=== PATIENT | female | born 2000 | race Caucasian/White ===

== ENCOUNTER 2021-07-31 12:35 | Observation (INO) ==
[2021-07-31 12:59] LABS: Basophils # (auto) 0.03 K/uL (0-0.2); Basophils % (auto) 0.3 %; Eosinophils # (auto) 0.08 K/uL (0-0.5); Eosinophils % (auto) 0.8 %; Hematocrit (blood only) 36.5 % (37-47); Hemoglobin 12.5 g/dL (12.0-16.0); Immature Granulocytes # (auto) 0.02 K/uL (0.00-0.02); Immature Granulocytes % (auto) 0.2 %; Lymphocytes # (auto) 1.34 K/uL (1.2-3.4); Lymphocytes % (auto) 13.6 %; Mean Corpuscular Hemoglobin 31.7 pg (25-34); Mean Corpuscular Hgb Conc 34.2 g/dL (32-36); Mean Corpuscular Volume 92.6 fL (80-100); Mean Platelet Volume 9.6 fL (7.4-10.4); Monocytes # (auto) 0.61 K/uL (0.11-0.59); Monocytes % (auto) 6.2 %; Neutrophils # (auto) 7.75 K/uL (1.4-6.5); Neutrophils % (auto) 78.9 %; Platelet Count 307 K/uL (130-400); RDW Coefficient of Variation 11.8 % (11.5-14.5); RDW Standard Deviation 40.5 fL (36.4-46.3); Red Blood Count 3.94 M/uL (4.2-5.4); White Blood Count 9.83 K/uL (4.8-10.8)
[2021-07-31 13:24] LABS: Alanine Aminotransferase 10 U/L (7-52); Albumin Globulin Ratio 1.9 (0.9-2); Albumin Level 4.5 gm/dl (3.4-5.0); Alkaline Phosphatase 37 U/L (34-104); Anion Gap 7 (3-11); Aspartate Aminotransferase 12 U/L (13-39); BUN Creatinine Ratio 13.3 (10-20); Bilirubin,Total 0.3 mg/dl (0.2-1.0); Blood Urea Nitrogen 8 mg/dl (6-23); Calcium 9.1 mg/dl (8.5-10.1); Carbon Dioxide 26 mmol/L (21-32); Chloride 105 mmol/L (98-107); Creatinine Clr Calc Pharmacy 118.3 ml/min; Est GFR (African American) > 150.0 ml/min; Est GFR (Non-African American) 131.2 ml/min; Globulin 2.4 gm/dl (2.5-4.0); Glucose 94 mg/dl (70-99(Fasting)); Lipase 7 U/L (11-82); Potassium 3.7 mmol/L (3.5-5.1); Sodium 138 mmol/L (136-145); Total Protein 6.9 gm/dl (6.0-8.3)
[2021-07-31] MEDS ORDERED: KETOROLAC TROMETHAMINE 15 MG/ML VIAL IV STA (13:58)
[2021-07-31] MEDS ORDERED: SODIUM CHLORIDE 0.9% 1000ML 1,000 ML IV SCH (13:59)
--- NOTE | 2021-07-31 14:02 | Emergency Department Note ---
History of Present Illness General Chief complaint: Abdominal Pain Stated complaint: FLANK PAIN, REF BY MED EX Time Seen by Provider: 07/31/21 13:32 History of Present Illness Maximum Pain Intensity: 6 Patient is a healthy 20-year-old female who presents the emergency department for evaluation of right back and abdominal pain x3 days. She was referred by [facility] for evaluation. Patient states that on Thursday evening, 3 days ago, after eating [place] leftovers she developed some right-sided mid back discomfort. The pain persisted the following day, and she also began to notice some discomfort in the right side of her abdomen. She notes the pain is worse after eating. It is worse at night. She states the pain has continued, and gotten worse. She has tried taking Aleve which initially was helping, but now is not. She tried to take NyQuil to see if it would help her to sleep but the pain kept her from sleeping the last 2 nights. She states that its worst she would have rated her pain a 9/10 last evening, she currently rates it a 5/10. She reports anorexia and has not been eating secondary to concern for pain, no nausea or vomiting. Normal bowel movements. No urinary symptoms. She denies any alcohol use, drinks caffeinated beverages sparingly, and uses Aleve infrequently for discomfort. Remote history of acid reflux as a child, but no ongoing GI issues. She was seen at [facility], they were concerned for possible gallbladder pathology and they sent her to the emergency department Home Medications Medication Instructions Recorded Confirmed Type norgestimate 0.18 mg/0.215 mg/0.25 1 tab PO DAILY 07/31/21 07/31/21 History mg-ethinyl estradiol 25 mcg tablet ([id number]) Allergies Allergy/AdvReac Type Severity Reaction Status Date / Time No Known Allergies Allergy Verified 07/31/21 17:11 Past Med/Surg History Medical History No significant past medical history Surgical History H/O wisdom tooth extraction History of adenoidectomy Social History Smoking Status: Never smoker Feels Safe at Home: Yes Review of Systems A total of 10 systems reviewed and were otherwise negative Physical Exam Vital Signs Vital Signs - 24 hr 07/31/21 12:39 Temperature 36.3 C L Temperature Source Temporal Artery Scan Pulse Rate 85 Respiratory Rate 18 Respiratory Effort / Characteristics Non-Labored Respiratory Depth Normal Blood Pressure 129/89 Blood Pressure Mean 102 Pulse Oximetry 98 Oxygen Delivery Method Room Air Sepsis Recent Fever Within 48 Hours No Sepsis New/Unexplained Change in Mental Status No Sepsis Action Taken by Nursing No Action Required CONSTITUTIONAL: Petite, well-appearing 20-year-old female who is awake and alert and in no acute distress. EYES: Pupils equal, round, reactive to light and accommodation. EOMs intact without nystagmus. Sclera are anicteric. ENT: Tympanic membranes intact, with normal landmarks. External canals are clear. Oral and nasopharynx are clear. Mucous membranes are moist, no lesions, tongue and gums appear normal. CARDIOVASCULAR: Regular rate and rhythm, with normal S1 and S2, no murmur or gallop or rub is heard. Peripheral pulses easy to palpable. RESPIRATORY: Breath sounds equal and clear to auscultation without wheezes, rales, or rhonchi heard. Full and equal chest expansion without accessory mu scle use or retractions. GI: Bowel sounds are present. Abdomen is soft, nontender to percussion th roughout, mildly tender to palpation in the right mid abdomen. No guarding or rebound. MUSCULOSKELETAL: Full range of motion of extremities x 4 with good strength. No cyanosis, edema, joint tenderness or swelling. No deformity. Examination of the patient's back notes no rashes, erythema or swelling. Slight tenderness to palpation in the right thoracic paraspinous muscle distribution. Full range of motion. INTEGUMENTARY: No lesions or rash, normal skin turgor. LYMPH: No lymphadenopathy. Course Course The patient was seen and assessed as above. Old records are reviewed. She presents the emergency department for evaluation of right mid back and right- sided abdominal pain x3 days. She was seen at an outside urgent care center and sent to the emergency department for evaluation. CBC with differential, CMP, lipase, serum hCG and urinalysis were collected. Gallbladder ultrasound was obtained. Patient was hydrated with normal saline, and medicated with Toradol 15 mg IV. Laboratory studies note a normal white count at 9800. No bandemia noted. No anemia. Electrolytes and renal functions are normal. Transaminases are not elevated. Lipase is within normal limits. Serum hCG is negative. Urine micr oscopy is clear without signs of infection. Ultrasound of the gallbladder notes cholelithiasis with gallbladder wall thickening and pericholecystic fluid, concerning for acute cholecystitis. No ductal dilatation. Laboratory and ultrasound findings were reviewed with the patient. Consultation was placed with general surgery, Dr. Haji/Coby Ramirez PA-C came to evaluate the patient in the emergency department. Please refer to their surgical consult for further information. Initially it was felt that the patient could be discharged home, with plans for elective cholecystectomy as an outpatient. She preferred this given school constraints, and that she is away from home. Upon further discussion with her family however, the patient has changed her mind, and would like to pursue cholecystectomy as soon as possible. I did contact Dr. Haji with regards to the change in the patient's decision, he will evaluate the patient. A Covid swab was obtained for admitting/surgical purposes. Administered Medications Discontinued Medications Sodium Chloride (Nss 1000ml) 1,000 mls @ 999 mls/hr IV .Q1H1M FARIBA Stop: 07/31/21 14:59 Last Infusion: 07/31/21 15:17 Dose: 0 mls/hr Documented by: [id number] Admin: 07/31/21 14:28 Dose: 999 mls/hr Documented by: [id number] Ketorolac Tromethamine (Ketorolac Tromethamine 15 Mg/Ml Vial) 15 mg IV NOW STA Stop: 07/31/21 13:59 Last Admin: 07/31/21 14:27 Dose: 15 mg Documented by: [id number] Medical Decision Making Differential Diagnosis Differential diagnoses entertained included GERD, gastritis, esophagitis, acute pancreatitis, cholelithiasis, acute cholecystitis, ascending cholangitis, pyelonephritis, UTI, shingles, hernia, musculoskeletal pain, among others. Medical Records Attestation: I reviewed the patient's medical records. Home Medications Current Medication List: was personally reviewed by me Laboratory Data Attestation: I reviewed the patient's lab results. Result diagrams: 07/31/21 12:49 07/31/21 12:49 Lab Results 07/31/21 07/31/21 07/31/21 Range/Units 12:49 12:49 12:49 WBC 9.83 (4.8-10.8) K/uL RBC 3.94 L (4.2-5.4) M/uL Hgb 12.5 (12.0-16.0) g/dL Hct 36.5 L (37-47) % MCV 92.6 (80-100) fL MCH 31.7 (25-34) pg MCHC 34.2 (32-36) g/dL RDW Std Deviation 40.5 (36.4-46.3) fL RDW Coeff of [place] 11.8 (11.5-14.5) % Plt Count 307 (130-400) K/uL MPV 9.6 (7.4-10.4) fL Immature Gran % (Auto) 0.2 % Neut % (Auto) 78.9 % Lymph % (Auto) 13.6 % [place] % (Auto) 6.2 % Eos % (Auto) 0.8 % Baso % (Auto) 0.3 % Neut # (Auto) 7.75 H (1.4-6.5) K/uL Lymph # (Auto) 1.34 (1.2-3.4) K/uL [place] # (Auto) 0.61 H (0.11-0.59) K/uL Eos # (Auto) 0.08 (0-0.5) K/uL Baso # (Auto) 0.03 (0-0.2) K/uL Immature Gran # (Auto) 0.02 (0.00-0.02) K/uL Sodium 138 (136-145) mmol/L Potassium 3.7 (3.5-5.1) mmol/L Chloride 105 (98-107) mmol/L Carbon Dioxide 26 (21-32) mmol/L Anion Gap 7 (3-11) BUN 8 (6-23) mg/dl Creatinine 0.60 (0.6-1.2) mg/dl Est Cr Clr Drug Dosing 118.3 ml/min Est GFR ( Amer) > 150.0 ml/min Est GFR (Non-Af Amer) 131.2 ml/min BUN/Creatinine Ratio 13.3 (10-20) Glucose 94 (70-99(Fasting)) mg/dl Calcium 9.1 (8.5-10.1) mg/dl Total Bilirubin 0.3 (0.2-1.0) mg/dl AST 12 L (13-39) U/L ALT 10 (7-52) U/L Alkaline Phosphatase 37 (34-104) U/L Total Protein 6.9 (6.0-8.3) gm/dl Albumin 4.5 (3.4-5.0) gm/dl Globulin 2.4 L (2.5-4.0) gm/dl Albumin/Globulin Ratio 1.9 (0.9-2) Lipase 7 L (11-82) U/L HCG, Qual Negative (Negative) Urine Color Urine Appearance (Clear) Urine pH (4.5-7.5) Ur Specific [place] (1.000-1.030) Urine Protein (Negative) Urine Glucose (UA) (Negative) Urine Ketones (Negative) Urine Blood (Negative) Urine Nitrite (Negative) Urine Bilirubin (Negative) Urine Urobilinogen (Negative) Ur Leukocyte Esterase (Negative) 07/31/21 Range/Units 14:20 WBC (4.8-10.8) K/uL RBC (4.2-5.4) M/uL Hgb (12.0-16.0) g/dL Hct (37-47) % MCV (80-100) fL MCH (25-34) pg MCHC (32-36) g/dL RDW Std Deviation (36.4-46.3) fL RDW Coeff of [place] (11.5-14.5) % Plt Count (130-400) K/uL MPV (7.4-10.4) fL Immature Gran % (Auto) % Neut % (Auto) % Lymph % (Auto) % [place] % (Auto) % Eos % (Auto) % Baso % (Auto) % Neut # (Auto) (1.4-6.5) K/uL Lymph # (Auto) (1.2-3.4) K/uL [place] # (Auto) (0.11-0.59) K/uL Eos # (Auto) (0-0.5) K/uL Baso # (Auto) (0-0.2) K/uL Immature Gran # (Auto) (0.00-0.02) K/uL Sodium (136-145) mmol/L Potassium (3.5-5.1) mmol/L Chloride (98-107) mmol/L Carbon Dioxide (21-32) mmol/L Anion Gap (3-11) BUN (6-23) mg/dl Creatinine (0.6-1.2) mg/dl Est Cr Clr Drug Dosing ml/min Est GFR ( Amer) ml/min Est GFR (Non-Af Amer) ml/min BUN/Creatinine Ratio (10-20) Glucose (70-99(Fasting)) mg/dl Calcium (8.5-10.1) mg/dl Total Bilirubin (0.2-1.0) mg/dl AST (13-39) U/L ALT (7-52) U/L Alkaline Phosphatase (34-104) U/L Total Protein (6.0-8.3) gm/dl Albumin (3.4-5.0) gm/dl Globulin (2.5-4.0) gm/dl Albumin/Globulin Ratio (0.9-2) Lipase (11-82) U/L HCG, Qual (Negative) Urine Color Yellow Urine Appearance Clear (Clear) Urine pH 7.0 (4.5-7.5) Ur Specific [place] 1.019 (1.000-1.030) Urine Protein Negative (Negative) Urine Glucose (UA) Negative (Negative) Urine Ketones 1+ H (Negative) Urine Blood Negative (Negative) Urine Nitrite Negative (Negative) Urine Bilirubin Negative (Negative) Urine Urobilinogen Negative (Negative) Ur Leukocyte Esterase Negative (Negative) Imaging Data Attestation: I personally reviewed and interpreted this imaging study as follows: Radiologist's Impression: Gallbladder Ultrasound 07/31/21 13:58 US gallbladder HISTORY: 20 years-old Female RUQ, RIGHT BACK PAIN X 3 DAYS acute right upper quadrant abdominal pain COMPARISON: None TECHNIQUE: Multiple real-time sonographic images of the abdominal right upper quadrant were obtained assessing grayscale appearance and color flow FINDINGS: The visualized pancreas is unremarkable. The liver is within normal limits measuring up to 16.3 cm in length. Cholelithiasis with trace gallbladder sludge. Trace pericholecystic fluid. The gallbladder wall is mildly thickened measuring up to 4 mm. Sonographic Griffiths sign reported as negative. Normal common bile duct measures 3 mm. Imaged right kidney is unremarkable without hydronephrosis. IMPRESSION: 1. Cholelithiasis with gallbladder wall thickening and pericholecystic fluid is suspicious for acute cholecystitis in the appropriate clinical setting. The sonographic Griffiths's sign however was reported as negative. 2. No biliary ductal dilation. ACT 112: Negative or not required by law. The above report was generated using voice recognition software. It may contain grammatical, syntax or spelling errors. Electronically signed by: Judah Arteaga M.D. 07/31/2021 3:32 PM MDM Narrative See ED Course. Impression & Plan Acute right flank pain, Symptomatic cholelithiasis Discharge Plan Visit Data Chief Complaint: Abdominal Pain Stated Complaint: FLANK PAIN, REF BY MED EX ED Provider: Irwin Guerrero ED Midlevel Provider: Gilda Coronado Discharge Problem: Acute right flank pain, Symptomatic cholelithiasis Patient Disposition: Being Evaluated by Surgeon Forms Stand Alone Forms: [facility], [facility] Emergency Department, Important Visit Information Prescriptions Prescriptions: No Action norgestimate-ethinyl estradiol [[id number]] 0.18/0.215/0.25 mg-25 mcg tablet 1 tab PO DAILY RF: 0 Referrals Referrals: Emmanuel Haji MD, FACS [Physician] - PCP,NO [Primary Care Provider] -
[2021-07-31 14:20] LABS: Pregnancy Test, Serum Negative (Negative)
[2021-07-31 15:04] LABS: Appearance Urine Clear (Clear); Bilirubin Urine Negative (Negative); Blood Urine Negative (Negative); Color Urine Yellow; Glucose Urine UA Negative (Negative); Ketones Urine 1+ (Negative); Leukocyte Esterase Urine Negative (Negative); Nitrite Urine Negative (Negative); Protein Urine Negative (Negative); Specific Gravity Urine 1.019 (1.000-1.030); Urobilinogen Urine Negative (Negative)
--- NOTE | 2021-07-31 15:33 | Ultrasound Report ---
US gallbladder HISTORY: 20 years-old Female RUQ, RIGHT BACK PAIN X 3 DAYS acute right upper quadrant abdominal pain COMPARISON: None TECHNIQUE: Multiple real-time sonographic images of the abdominal right upper quadrant were obtained assessing grayscale appearance and color flow FINDINGS: The visualized pancreas is unremarkable. The liver is within normal limits measuring up to 16.3 cm in length. Cholelithiasis with trace gallbladder sludge. Trace pericholecystic fluid. The gallbladder w all is mildly thickened measuring up to 4 mm. Sonographic Griffiths sign reported as negative. Normal co mmon bile duct measures 3 mm. Imaged right kidney is unremarkable without hydronephrosis. IMPRESSION: 1. Cholelithiasis with gallbladder wall thickening and pericholecystic fluid is suspicious for acute cholecystitis in the appropriate clinical setting. The sonographic Griffiths's sign however was reported as negative. 2. No biliary ductal dilation. ACT 112: Negative or not required by law. The above report was generated using voice recognition software. It may contain grammatical, syntax o r spelling errors. Electronically signed by: Judah Arteaga M.D. 07/31/2021 3:32 PM
--- NOTE | 2021-07-31 16:54 | Surgery Consultation ---
Date of Consultation July 31, 2021 Assessment & Plan (1) Symptomatic cholelithiasis: This is a 20y F with no significant PMH who presents to the [facility] ED on 07/31/21 with complaints of back and abdominal pain over the last 3 days associated with nausea/vomiting. In the ER she underwent a RUQ US which showed cholelithiasis with gallbladder wall thickening and pericholecystic fluid, cannot rule out cholecystitis. WBC 9.5 and LFTs unremarkable. Her VSS and patient's afebrile. On examination abdomen is soft with mild discomfort to palpation elicited in the RUQ. She currently feels improvement in her symptoms. Patient expressing wishes to have this taken care of over spring if possible. Options discussed with patient regarding surgical intervention while here vs going home & continuing to monitor and follow up with a surgeon back [place] in [place] for consideration of cholecystectomy. Although there are inflammatory changes seen on RUQ there is no evidence of active infection. Believe it is reasonable for patient to be discharged with plan for follow up closer to home in the next 2 weeks. She was given return precautions should she develop ongoing nausea/vomiting, fevers/chills, and worsening abdominal pain to report back to the ER. Recommend a liquid diet tonight and may resume a low fat diet thereafter. She expressed understanding and was agreeable with the plan. Supervising Physician Co-Signing Physician Notes Dr. Hajipatient with abdominal pain and nausea which has been persistent Her work-up includes an ultrasound which shows a thickened gallbladder with pericholecystic fluid and large gallstones 1 possibly near the neck Initially the patient did not want surgery however she has changed her mind and I do feel we should proceed as soon as possible Plan is for laparoscopic cholecystectomy I have discussed this with the patient's mother-she and the patient both understand the operation and agreed to go ahead History of Present Illness History of Present Illness This is a 20y F with no significant PMH who presents to the [facility] ED on 07/31/21 with complaints of back and abdominal pain over the last 3 days. Patient reports she developed back pain starting thursday evening. Her abdominal pain started on Thursday after eating dinner which consisted of a chicken wrap. She took Aleve and this helped her symptoms a bit. Then Thursday the back and abdominal pain returned. She reports feeling restless at nighttime, last night being the worst. She again took Aleve and tried taking Nyquil to get some sleep without success. She did develop nausea/vomiting yesterday evening. Due to her symptoms she went to [facility] today where they sent a urine which by her report was negative. They recommended she come into the ER for workup of gallbladder patholgoy. In the ER she underwent a RUQ US which showed cholelithiasis with gallbladder wall thickening and pericholecystic fluid, cannot rule out cholecystitis. She denies a history of pain like this before. Denies f/c, cp/sob, or change in bowel habits. Reports her pain at it's worse was a 9/10, made worse with eating. No prior abdominal surgeries. She received some Toradol in the ER today and has been feeling much better since arrival. Allergies Allergy/AdvReac Type Severity Reaction Status Date / Time No Known Allergies Allergy Verified 07/31/21 17:11 Home Medications Medication Instructions Recorded Confirmed Type norgestimate 0.18 mg/0.215 mg/0.25 1 tab PO DAILY 07/31/21 07/31/21 History mg-ethinyl estradiol 25 mcg tablet ([id number]) Patient History Medical History No significant past medical history Surgical History H/O wisdom tooth extraction History of adenoidectomy Social History Smoking Status: Never smoker Feels Safe at Home: Yes Review of Systems Constitutional: + anorexia; no fever and no chills Respiratory: no dyspnea Cardiovascular: no chest pain Gastrointestinal: + abdominal pain, + nausea and + vomiting; no change in bowel habits Musculoskeletal: + back pain Physical Exam Physical Exam: awake/alert Constitutional: well developed and well nourished; no acute distress Respiratory: normal respiratory effort Gastrointestinal (Abdomen): Inspection/Auscultation: abdomen not distended and no abdominal surgical scar Percussion/Palpation: + abdomen tender (some discomfort to palpation in RUQ) and abdomen soft Results & Data ([facility]) Vital Signs (Past 12 Hours) Vital Signs Temp Pulse Resp BP Pulse Ox 07/31/21 12:39 36.3 C L 85 18 129/89 98 Diagnostic Findings US gallbladder HISTORY: 20 years-old Female RUQ, RIGHT BACK PAIN X 3 DAYS acute right upper quadrant abdominal pain COMPARISON: None TECHNIQUE: Multiple real-time sonographic images of the abdominal right upper quadrant were obtained assessing grayscale appearance and color flow FINDINGS: The visualized pancreas is unremarkable. The liver is within normal limits measuring up to 16.3 cm in length. Cholelithiasis with trace gallbladder sludge. Trace pericholecystic fluid. The gallbladder wall is mildly thickened measuring up to 4 mm. Sonographic Griffiths sign reported as negative. Normal common bile duct measures 3 mm. Imaged right kidney is unremarkable without hydronephrosis. IMPRESSION: 1. Cholelithiasis with gallbladder wall thickening and pericholecystic fluid is suspicious for acute cholecystitis in the appropriate clinical setting. The sonographic Griffiths's sign however was reported as negative. 2. No biliary ductal dilation. ACT 112: Negative or not required by law. The above report was generated using voice recognition software. It may contain grammatical, syntax or spelling errors. Electronically signed by: Judah Arteaga M.D. 07/31/2021 3:32 PM PG Care Time/CCT Total # of Minutes Spent Total Time Spent with Patient: Total time spent is greater than 50% in coordination of care (as documented) at patient's floor/unit and/or counseling patient: Coding Level of Care Code 73020 Office/OBS Consult Lvl 3 Diagnoses Symptomatic cholelithiasis K80.20
--- NOTE | 2021-07-31 17:21 | Anesthesiology Consultation ---
Date of Service July 31, 2021 Assessment & Plan (1) Encounter for pre-operative examination: Chart Review Chart Review: Acceptable Risk for Surgery and Patient NOT seen in Pre Admission Testing Consults Requested none History Surgery Operation Date: 07/31/21 16:45 Proposed Procedures p Laparoscopic Cholecystectomy - Emmanuel Haji MD, FACS Height/Weight Height: 5 ft 2 in Weight: 51.8 kg Allergies Allergy/AdvReac Type Severity Reaction Status Date / Time No Known Allergies Allergy Verified 07/31/21 17:11 Medications Home Medications Medication Instructions Recorded Confirmed Last Taken norgestimate 0.18 mg/0.215 mg/0.25 1 tab PO DAILY 07/31/21 07/31/21 07/31/21 mg-ethinyl estradiol 25 mcg tablet ([id number]) Past Medical History Medical History No significant past medical history Past Surgical History Surgical History H/O wisdom tooth extraction History of adenoidectomy Social History Smoking Status: Never smoker Physical Exam Vital Signs Last Vital Signs Temp 97.3 F L 07/31/21 12:39 Pulse 85 07/31/21 12:39 Resp 18 07/31/21 12:39 BP 129/89 07/31/21 12:39 Pulse Ox 98 07/31/21 12:39 Testing Laboratory Results 07/31/21 12:49 07/31/21 12:49 Urine Color Yellow 07/31/21 14:20 Urine Appearance Clear (Clear) 07/31/21 14:20 Urine pH 7.0 (4.5-7.5) 07/31/21 14:20 Ur Specific [place] 1.019 (1.000-1.030) 07/31/21 14:20 Urine Protein Negative (Negative) 07/31/21 14:20 Urine Glucose (UA) Negative (Negative) 07/31/21 14:20 Urine Ketones 1+ (Negative) H 07/31/21 14:20 Urine Nitrite Negative (Negative) 07/31/21 14:20 Ur Leukocyte Esterase Negative (Negative) 07/31/21 14:20 07/31/21 14:20 POC Ur Test Pending
[2021-07-31] MEDS ORDERED: MoRPHine SULFATE 2 MG/ML CARP IV PRN (17:29)
[2021-07-31] MEDS ORDERED: PROMETHAZINE HCL 12.5 MG in SODIUM CHLORIDE 0.9% 50 ML IV PRN (17:29)
[2021-07-31] MEDS ORDERED: ONDANSETRON INJ 2 MG/ML 2 ML VIAL IV PRN ×3 (17:29→22:04)
[2021-07-31] MEDS ORDERED: LACTATED RINGER'S 1,000 ML IV SCH (17:30)
[2021-07-31] MEDS ORDERED: cefOXitin 2,000 MG in DEXTROSE 5% 50 ML IV STA (17:56)
[2021-07-31] MEDS ORDERED: BUPIVACAINE 0.5 % 5 MG/1 ML MPF 30ML VIAL ONE (18:34)
[2021-07-31] MEDS ORDERED: LIDOCAINE 2% 2 ML VIAL/AMP(20MG/ML) INFIL ONE (18:43)
[2021-07-31] MEDS ORDERED: PROPOFOL IV EMULSION 10 MG/ML 20 ML VIAL IV ONE (18:43)
[2021-07-31] MEDS ORDERED: MIDAZOLAM HCL 1 MG/ML 2ML VIAL ONE ×2 (18:43→18:48)
[2021-07-31] MEDS ORDERED: fentaNYL citrate 100 MCG/2 ML VIAL ONE ×2 (18:44→18:48)
[2021-07-31] MEDS ORDERED: ATROPINE SULFATE 0.1 MG/ML 10ML SYR IV PRN (18:45)
[2021-07-31] MEDS ORDERED: ePHEDrine sulfate 50 MG/ML AMP IV PRN (18:45)
[2021-07-31] MEDS ORDERED: PROMETHAZINE HCL 6.25 MG in SODIUM CHLORIDE 0.9% 50 ML IV PRN (18:45)
[2021-07-31] MEDS ORDERED: ROCURONIUM BROMIDE 10 MG/ML 5 ML VIAL IV ONE (18:50)
[2021-07-31] MEDS ORDERED: ACETAMINOPHEN 1,000 MG/100 ML VIAL IV ONE (20:18)
--- NOTE | 2021-07-31 20:18 | Post Operative Brief Note ---
PG Immediate Post Op with CF Date of Surgery July 31, 2021 Pre & Post Diagnosis Operation Date: 07/31/21 16:45 Pre-Op Diagnosis: Cholecystitis Post-Op Diagnosis: Cholecystitis-acute I identified the patient and participated in the time-out.: Yes Procedure Operation Date: 07/31/21 16:45 Actual Procedures p Laparoscopic Cholecystectomy - Emmanuel Haji MD, FACS Surgeon Emmanuel Haji MD, FACS Steel Rule Inspector Marla Mobley Estimated Blood Loss 5 Findings Consistent with Post-Op Diagnosis Patient had severe acute cholecystitis with very large gallstones and gallstone in the neck of the gallbladder Specimens Specimen Description: A. gallbladder
[2021-07-31] MEDS: fentaNYL citrate 100 MCG/2 ML VIAL IV PRN ×2 (20:36→20:55)
[2021-07-31] MEDS ORDERED: ONDANSETRON INJ 2 MG/ML 2 ML VIAL ONE (20:39)
[2021-07-31] MEDS ORDERED: DEXAMETHASONE SOD INJ 4 MG/ML VIAL ONE (20:39)
[2021-07-31] MEDS ORDERED: KETOROLAC 30 MG/ML VIAL ONE (20:39)
[2021-07-31] MEDS ORDERED: GLYCOPYRROLATE 0.2 MG/ML VIAL ONE (20:39)
[2021-07-31] MEDS ORDERED: NEOSTIGMINE METHYLSULFATE 1 MG/ML 10ML VIAL ONE (20:39)
--- NOTE | 2021-07-31 21:26 | Anesthesiology Progress Note ---
Date of Service July 31, 2021 Anesthesia Post Procedure Vital Signs Vital Signs: Temp Pulse Pulse Resp BP BP Pulse Ox 07/31/21 21:20 56 L 18 111/79 100 07/31/21 21:10 97.9 F 56 L 12 114/84 96 07/31/21 21:00 57 L 17 111/78 94 07/31/21 20:50 60 16 112/80 98 07/31/21 20:40 77 16 114/80 100 07/31/21 20:30 97.2 F L 96 H 20 120/82 99 07/31/21 18:18 98.8 F 79 18 117/79 100 07/31/21 12:39 97.3 F L 85 18 129/89 98 Pain Intensity Abdomen: Pain Intensity: 3 Transfer of Care Handoff Completed per policy Notes Mental Status: alert / awake / arousable and participated in evaluation Patient Amnestic to Procedure: Yes Nausea / Vomiting: adequately controlled Pain: adequately controlled Airway Patency, RR, SpO2: stable & adequate BP & HR: stable & adequate Hydration State: stable & adequate Anesthetic Complications: no major complications apparent and Pt Satisfied with anesthetic care
[2021-07-31] MEDS ORDERED: MoRPHine SULFATE 4 MG/ML 1 ML CARP\\VIAL IV PRN (22:04)
[2021-07-31] MEDS ORDERED: IBUPROFEN 600 MG TAB PO PRN (22:04)
[2021-07-31] MEDS ORDERED: ACETAMINOPHEN 325 MG TAB PO PRN (22:04)
--- NOTE | 2021-07-31 23:20 | Operative Report (OR) ---
DATE OF OPERATION: 07/31/2021. NAME OF OPERATION: Laparoscopic cholecystectomy. PREOPERATIVE DIAGNOSIS: Acute cholecystitis. POSTOPERATIVE DIAGNOSIS: Acute cholecystitis. STAFF SURGEON: Emmanuel Haji MD. ARMOURED CAR ESCORT: LAWRENCE Salmon. ANESTHESIA: General. DESCRIPTION OF PROCEDURE: The patient was brought in the operating room and placed on the operating table in supine position. Her abdomen was prepped and draped in the usual fashion. Pneumatic stocki ngs and orogastric tube were placed. 0.5% plain Marcaine was used to anesthetize all incisions. An incision was made just above the umbilicus, carrying dissection down to the fascia, placing a Veress needle producing pneumoperitoneum. Initially, a 5 mm port was placed and then an 11 mm port placed; under visualization, three 5 mm ports were placed, one cephalad and two laterally. Gallbladder was significantly distended and inflamed. It was aspirated of bile, which was clear alex cating obstruction and hydrops. My carpenter's assistant did help with prepping, draping, removal of the gallbla dder and closure of the wound. At this point, the gallbladder was retracted. Dissection carried out to the viviana hepatis. There was severe edema. Cystic duct and cystic artery were identified, clipp ed and transected. The gallbladder dissected away from the liver bed in the usual fashion. There wa s severe edema in the posterior wall. Gallbladder was placed in an Endobag. After appropriate hemos tasis and irrigation, the Endobag was removed through the umbilical site. I did have to enlarge the fascial defect significantly to remove several very large stones and the edematous gallbladder. The fascia at the umbilicus closed using a running 0 PDS suture. Subcutaneous tissue reapproximated using 2-0 plain suture, then the skin reapproximated using subcuticular 4-0 Monocryl with Dermabond. The patient was transferred to recovery room in stable condition. Job ID: [id number]
[2021-08-01] MEDS: oxyCODONE HCL IR 5 MG TAB (IMMEDIATE RELEASE) PO PRN ×2 (01:32→10:15)
--- NOTE | 2021-08-01 06:18 | Surgery Progress Note ---
Date of Service August 01, 2021 Assessment & Plan (1) History of laparoscopic cholecystectomy: Plan: Patient had relatively severe acute cholecystitis She had been ill for several days She seems to be doing okay taking some p.o. She did require some IV pain medication We will see how she progresses this morning and possible discharge later as opposed to Keeping her 1 more day in the hospital Admission and Anticipated Discharge Date Admission Date: July 31, 2021 Results & Data ([facility]) Vital Signs (Past 12 Hours) Vital Signs Temp Pulse Pulse Resp BP Pulse Ox 08/01/21 01:09 36.9 C 62 16 108/73 100 08/01/21 00:01 36.8 C 61 16 100/65 100 07/31/21 23:00 36.9 C 68 18 109/72 98 07/31/21 22:30 36.9 C 60 16 110/72 99 07/31/21 22:00 36.8 C 63 14 123/62 100 07/31/21 21:35 78 14 110/80 99 07/31/21 21:20 56 L 18 111/79 100 07/31/21 21:10 36.6 C 56 L 12 114/84 96 07/31/21 21:00 57 L 17 111/78 94 07/31/21 20:50 60 16 112/80 98 07/31/21 20:40 77 16 114/80 100 07/31/21 20:30 36.2 C L 96 H 20 120/82 99 07/31/21 18:18 37.1 C 79 18 117/79 100 PG Care Time/CCT Total # of Minutes Spent Total Time Spent with Patient: Total time spent is greater than 50% in coordination of care (as documented) at patient's floor/unit and/or counseling patient: Coding Level of Care Code None Diagnoses History of laparoscopic cholecystectomy Z90.49
--- NOTE | 2021-08-05 08:09 | Discharge Summary (DS) ---
DATE OF ADMISSION: 07/31/2021 DATE OF DISCHARGE: 08/01/2021 PRINCIPAL DIAGNOSIS: Acute cholecystitis. PROCEDURE: The patient underwent laparoscopic cholecystectomy. HISTORY OF PRESENT ILLNESS: The patient is a 20-year-old female presenting to the Emergency Room wit h persistent abdominal pain and found on studies to have a thickened, dilated gallbladder with stones . On 07/31/2021, the patient was taken to the operating room where she underwent laparoscopic cholecy stectomy showing severe acute cholecystitis. The patient did very well overnight progressing in both diet and activity and felt stable for discharge home on 08/01/2021 to be followed in the surgical cl [facility] within 1-2 weeks. Job ID: [id number]
== END 2021-08-01 13:38 | disposition home or self-care (01) ==
LOC: 3W 12:35 → ED 12:35 → 3W 08-03 18:08
DX: K80.20 Calculus of gallbladder without cholecystitis without obstruction